=== PATIENT | male | born 1985 | race Caucasian/White ===

== ENCOUNTER 2017-02-12 19:28 | Emergency (ER) | payer SELFPAY ==
[2017-02-12 20:25] VITALS: BP 104/73
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
--- NOTE | 2017-02-12 21:08 | RAD ---
Indication: Right hand injury. 4 views of the right hand are reviewed. There is no fracture or dislocation. No other bone or joint abnormality is noted. IMPRESSION: No fracture of the right hand is noted.
== END 2017-02-12 21:19 | disposition home or self-care (01) ==
LOC: UCCORT 19:28
DX: S60.221A Contusion of right hand, initial encounter (principal); X58.XXXA Exposure to other specified factors, initial encounter; Y93.9 Activity, unspecified; Y92.9 Unspecified place or not applicable; Y99.0 Civilian activity done for income or pay; F17.210 Nicotine dependence, cigarettes, uncomplicated
CPT/HCPCS: 99213; G0463